=== PATIENT | male | born 1945 | race Two or more races ===

== ENCOUNTER 2025-07-29 10:06 | Outpatient (CLI) | payer MEDICARE, BC | END 2025-07-29 23:59 | disposition home or self-care (01) | LOC: MSC 10:06 | PROVIDERS: ATTEND Internal Medicine | DX: R94.4 Abnormal results of kidney function studies (principal); I10 Essential (primary) hypertension; R33.9 Retention of urine, unspecified; Z96.0 Presence of urogenital implants; N40.0 Benign prostatic hyperplasia without lower urinary tract symptoms; D50.9 Iron deficiency anemia, unspecified; E83.9 Disorder of mineral metabolism, unspecified; M89.9 Disorder of bone, unspecified; G91.9 Hydrocephalus, unspecified; Z98.2 Presence of cerebrospinal fluid drainage device; F32.9 Major depressive disorder, single episode, unspecified ==